=== PATIENT | female | born 1985 | race Caucasian/White ===

== ENCOUNTER 2020-08-12 10:35 | Emergency (ER) | payer OTHER ==
[~2020-08-12] VITALS: Ht 165.1 cm; Wt 72.6 kg
[~2020-08-12 10:35] MED LIST: BENTYL 20 MG TA20 M1 PO; LOMOTIL TABLET1 EACH PO; PROMS25 WY RECTAL; ZOFRAN ODT4 MG PO; ZOFRAN4 MG PO
[2020-08-12] MEDS ORDERED: LEXAPRO5 MG PO (10:51)
[2020-08-12 12:32] VITALS: BP 117/79
== END 2020-08-12 12:32 | disposition home or self-care (01) ==
LOC: M.ERS 10:35
DX: J02.9 Acute pharyngitis, unspecified (principal); Z20.828 Contact with and (suspected) exposure to other viral communicable diseases; Z88.0 Allergy status to penicillin; Z88.2 Allergy status to sulfonamides